=== PATIENT | female | born 1965 | race Caucasian/White ===

== ENCOUNTER 2023-06-23 02:36 | Day surgery (SDC) | payer OTHER, SELFPAY ==
[2023-06-08 13:57] VITALS: BMI 43.3
--- NOTE | 2023-06-19 11:24 | SUR.PREOP ---
Patient called regarding upcoming procedure. Reviewed preop instructions, appointment times, and procedure prep.
[2023-06-23 10:36] VITALS: BP 147/84; PULSE 61; RESP 20; TEMP 35.6; O2SAT 98; BMI 42.5
--- NOTE | 2023-06-23 10:44 | P.HP_ITS ---
History of Present Illness History of Present Illness Consent: Risks, benefits, and alternatives have been discussed and questions answered. Patient agrees to proceed with procedure. Chief complaint: Personal hx of colon polyps Narrative: Antonette Alonso is a 58 year old female Presents for screening colonoscopy. She speaks only Persian. She is accompanied by her daughter who assists with translation. Patient is reported to have had colon polyps by Dr. Marion elsewhere in 2017. Patient presents today for follow-up colonoscopy. She reports that her weight appetite and bowel movements are normal. She denies abdominal pain. In general has been in good health. Family history noncontributory. Review of Systems Review of Systems: Review of systems noncontributory. [facility] Social History Social History Smoking status: Never smoker Substance use type: does not use Living arrangements: other Additional living arrangements comments: with sp Meds Home Medications and Allergies Home Medications Medication Instructions Recorded Confirmed Type No Home Medications 06/23/23 06/23/23 History Allergies Allergy/AdvReac Type Severity Reaction Status Date / Time No Known Allergies Allergy Verified 06/23/23 10:35 Vital Signs Vital Signs - 24 hr 06/23/23 10:36 Temperature 96.1 F L Pulse Rate 61 Respiratory Rate 20 Blood Pressure 147/84 H Pulse Oximetry 98 Oxygen Delivery Room Air Exam Narrative: Physical exam reveals patient to be alert. Vital signs stable. HEENT exam is unremarkable. Patient is anicteric. Lungs are clear to auscultation and percussion. Heart is without murmur or extra sounds. Abdomen bowel sounds are present soft nontender with no organomegaly. Digital external rectal exam normal. Assessment and Plan Assessment and plan (1) History of colon polyps: Code(s): Z86.010 - Personal history of colonic polyps Status: Acute Assessment and Plan: Patient presents today for screening colonoscopy. She has a history of colon polyp. Further recommendations may be given after endoscopy.
[2023-06-23] MEDS: LACTATED RINGERS 1,000 ML 150 ML IV CONT (10:51)
[2023-06-23] MEDS: AMPICILLIN 2 GM/NS 100 ML 2 GM/100 ML BAG IVPB (11:00)
--- NOTE | 2023-06-23 11:18 | P.PNAN_ITS ---
Anes - Initial Pre Proc Eval Procedure: Operation Date: 06/23/23 11:00 Proposed Procedures p Colonoscopy - Parveen Mo MD Date/Time: 06/23/23 11:18 Surgeon: Parveen Mo MD Pre Op Diagnosis: Personal hx of colon polyps Patient Data Age: 58 Gender: F Height: 1.57 m Weight: 105.4 kg Last Vital Signs Temp 96.1 F L 06/23/23 10:36 Pulse 61 06/23/23 10:36 Resp 20 06/23/23 10:36 BP 147/84 H 06/23/23 10:36 Pulse Ox 98 06/23/23 10:36 O2 Del Method Room Air 06/23/23 10:36 Allergies Allergy/AdvReac Type Severity Reaction Status Date / Time No Known Allergies Allergy Verified 06/23/23 10:35 Home Medications Medication Instructions Recorded Confirmed Type calcium carbonate 600 mg-vitamin 1 tablet PO BID 06/23/23 06/23/23 History D3 10 mcg (400 unit) tablet diclofenac sodium 75 mg 75 mg PO BID PRN Pain 06/23/23 06/23/23 History tablet,delayed release glucosamine sulf dipot 1 cap PO DAILY 06/23/23 06/23/23 History chlr,msm,chond 550 mg-C 30 mg-willis 1 mg capsule (Glucosamine Chondroitin) pregabalin 75 mg capsule 75 mg PO BID PRN Pain 06/23/23 06/23/23 History tramadol 50 mg tablet 50 mg PO Q6H PRN Pain 06/23/23 06/23/23 History Patient hx anesthesia problems: none Family hx anesthesia problems: none Results Review: All pre-operative results and documents have been reviewed as part of the pre- operative evaluation. [facility] Social History Social History Smoking status: Never smoker Substance use type: does not use Living arrangements: other Additional living arrangements comments: with sp Anes - Eval Final PreProcedure Day of Procedure 06/23/23 11:18 Patient weight: morbidly obese Heart: regular rate and rhythm Lungs: clear to auscultation Airway: Mallampati scale class II Neurological: alert and oriented Last oral intake: >/= 8 hours Emergent: no Anesthetic plan: proceed Results Review: All pre-operative results and documents have been reviewed as part of the pre- operative evaluation. Informed Consent: The patient's anesthetic plan and its attendant risks and benefits were discussed with the patient/family/POA. Questions were solicited and answers provided to the satisfaction of the patient/family/POA.
[2023-06-23 12:10] VITALS: BP 102/65; PULSE 64; RESP 20; O2SAT 97
[2023-06-23 12:20] VITALS: BP 114/71; PULSE 52; RESP 14; O2SAT 97
[2023-06-23 12:30] VITALS: BP 116/75; PULSE 52; RESP 14; O2SAT 100
== END 2023-06-23 12:50 | disposition home or self-care (01) ==
PROVIDERS: PCP Physician Assistant; Visit Provider Internal Medicine Gastroenterology
PROC: 0DJD8ZZ Inspection of Lower Intestinal Tract, Via Natural or Artificial Opening Endoscopic (ICD-10-PCS; CPT 45378; principal; 2023-06-23 11:00)
DX: Z12.11 Encounter for screening for malignant neoplasm of colon (principal); D12.3 Benign neoplasm of transverse colon; K62.1 Rectal polyp; K64.8 Other hemorrhoids; E66.01 Morbid (severe) obesity due to excess calories; Z68.41 Body mass index [BMI] 40.0-44.9, adult; Z86.010 Personal history of colon polyps
CPT/HCPCS: 45385; 88305; J0290; J2704; J7120

== ENCOUNTER 2024-03-16 10:48 | Outpatient (CLI) | payer OTHER, SELFPAY ==
[2024-03-16 11:38] LABS: Iron 95 ug/dL (37-170)
[2024-03-16 11:46] LABS: Basophils Percent Auto 0.7 % (0.2-1.2); Eosinophils Absolute Auto 0.1 K/mm3 (0-0.3); Hematocrit 38.2 % (37.0-47.0); Hemoglobin 12.3 g/dL (12.0-15.0); Immature Granulocyte Absolute 0.01 K/mm3 (0.00-0.031); Immature Granulocyte Percent A 0.2 % (0-0.5); Lymphocytes Absolute Auto 1.37 K/mm3 (0.9-3.2); Lymphocytes Percent Auto 30.6 % (18.3-44.2); Mean Corpuscular HGB Conc 32.2 g/dl (32-36); Mean Corpuscular Hemoglobin 27.2 pg (26-34); Mean Corpuscular Volume 84.5 fl (80-100); Mean Platelet Volume 11.8 fl (7.4-10.4); Monocytes Absolute Auto 0.4 K/mm3 (0.1-0.6); Neutrophils Absolute Auto 2.6 K/mm3 (1.3-6.7); Neutrophils Percent Auto 58.5 % (45.5-73.1); Platelet Count Result 214 k/mm3 (150-375); Red Blood Count 4.52 M/mm3 (4.2-5.4); Red Cell Distribution Width 14.6 % (11.5-14.5); White Blood Count 4.5 K/mm3 (4.5-10.0)
[2024-03-16 11:56] LABS: Percent Iron Saturation 28 % (20-50)
== END 2024-03-16 10:49 | disposition home or self-care (01) ==
PROVIDERS: PCP Physician Assistant; Visit Provider Nurse Practitioner Family
DX: R10.13 Epigastric pain (principal); R11.0 Nausea
CPT/HCPCS: 36415; 82728; 83540; 83550; 85025

== ENCOUNTER 2024-03-18 11:54 | Outpatient (CLI) | payer OTHER, SELFPAY ==
[2024-03-22 13:42] LABS: H pylori Ag Stool RESULT: Not Detected
== END 2024-03-18 11:55 | disposition home or self-care (01) ==
LOC: ANHLAB 11:56
PROVIDERS: PCP Emergency Medicine; Visit Provider Nurse Practitioner Family
DX: R10.13 Epigastric pain (principal); R11.0 Nausea
CPT/HCPCS: 87338

== ENCOUNTER 2025-02-15 09:16 | Outpatient (CLI) | payer OTHER, SELFPAY ==
--- NOTE | ~2025-02-15 | MM_ITS ---
EXAMINATION: MM screening howard BI w marcello HISTORY: Screening TECHNIQUE: Craniocaudal and mediolateral oblique 3-D tomosynthesis images were obtained and synthetic 2-D images were generated. CAD analysis was submitted and interpreted. COMPARISON: No prior mammogram is available for comparison at this institution. BREAST PARENCHYMAL COMPOSITION: Not Dense: The breasts are almost entirely fatty. FINDINGS: There is no evidence of suspicious mass, calcification, or architectural distortion to sugg est malignancy in either breast. There has been no suspicious interval change. IMPRESSION: 1. No mammographic evidence of malignancy. 2. Recommend routine screening mammography in one year. BI-RADS Category 1: Negative Reviewed, dictated and finalized at location B.
--- OUTSIDE RECORDS SUMMARY | 2025-02-15 09:36 | XMS_ITS | Referral Summary ---
Author Organization [facility] [place] Address [facility] [place] [address] Care Team Providers Care Abstract Clerk Name Role Phone Piper Sloan MD Primary Care Provider [phone] Allergies No known active allergies Medications calcium carbonate-vitamin D3 (CALTRATE 600 + D) 1500 mg (600 mg elemental) -400 units per tablet Take 1 tablet by mouth 2 (two) times a day 2 Active pregabalin (LYRICA) 75 mg capsule Take 1 capsule (75 mg total) by mouth 2 (two) times a day as needed Active ascorbic acid (ascorbic acid with may hips) 500 mg tablet,chewable Take 1 tablet/chew tab (500 mg total) by mouth daily Active acetaminophen (TYLENOL) 500 mg tablet Take 1 tablet (500 mg total) by mouth every 6 (six) hours as needed for pain Active apixaban (ELIQUIS) 2.5 mg tabletIndications:P rimary osteoarthritis of right knee Take 1 tablet (2.5 mg total) by mouth 2 (two) times a day for 14 days 28 tablet 3 Active ondansetron (ZOFRAN) 4 mg tabletIndications:P rimary osteoarthritis of right knee Take 1 tablet (4 mg total) by mouth every 8 (eight) hours as needed for nausea or vomiting 20 tablet 3 Active cyclobenzaprine (FLEXERIL) 10 mg tabletIndications:S 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 15 tablet 4 Active traMADoL (ULTRAM) 50 mg tabletIndications:P rimary osteoarthritis of right knee,Status post total knee replacement using cement, right Take 1 tablet (50 mg total) by mouth every 6 (six) hours as needed for pain 15 tablet [address] (PROTONIX) 40 mg EC tablet Take 1 tablet (40 mg total) by mouth 2 (two) times a day 60 tablet 2 5 Active nortriptyline (PAMELOR) 10 mg capsule Take 1 capsule (10 mg total) by mouth nightly 30 capsule 2 5 Active Active Problems Problem Noted Date Diagnosed Date Epigastric pain 10/21/2024 Orthopedic aftercare 08/04/2023 Arthritis of right knee 07/10/2023 Left knee pain 02/27/2023 Aftercare following left knee joint replacement surgery 02/27/2023 History of total knee arthroplasty 02/27/2023 Primary osteoarthritis of left knee 02/06/2023 Carpal tunnel syndrome 11/26/2022 3 Obesity 11/26/2022 11/26/2022 Uterine leiomyoma 10/08/2022 11/26/2022 Perimenopausal disorder 04/18/2022 11/27/19 Uterine prolapse 04/18/2022 11/26/2022 Impaired glucose tolerance 04/07/202211/26 Low vitamin D level 04/07/2022 11/26/2022 Osteoarthritis of knee 03/14/2021 Chronic back pain 12/11/2020 11/26/2022 Lumbosacral radiculopathy 11/12/20202022 Degeneration of lumbar intervertebral disc 06/2011/26/2022 Anemia 03/24/2017 11/26/2022 Dyslipidemia 03/24/2017 11/26/2022 Immunizations Immunization Administration Dates Next Due Influenza, Quadrivalent, Spl it, Intramuscular 06/20/2019,03/20/2017,08/12/2016 Influenza, Quadrivalent, Spl it, Preservative Free, Intramuscular 07/11/2023,08/06/2018 Influenza, Trivalent, IM (MDV) 08/07/2015 Pneumococcal Polysaccharide PPV23 03/20/2017 Tdap 04/20/2023,09/17/2011 Social History Tobacco Use Types Packs/Day Years Used Date Smoking Tobacco: Never Passive Smoke Exposure: Never Smokeless Tobacco: Never Tobacco Cessation:Counseling Given: Not Answered OASIS D0700: Social Isolation Answer Da te Recorded Frequency of experiencing loneliness or isolatio n Never 07/16/2023 A[employer]omaticities Answer Date Recorded In the past 12 months has [employer], gas, oil, or water [employer] threatened to shut off services in your home? No 07/10/2023 Social Connection and Isolat ion Panel [NHANES] Answer Date Recorded In a typical week, how many times do you talk on the phone with family, friends, or neighbors? More than three times a week 07/10/2023 How often do you get togethe r with friends or relatives? More than three times a week 07/10/2023 How often do you attend chur or adventism services? More than 4 times per year 07/10/2023 Do you belong to any clubs o r organizations such as quaker groups, unions, fraternal or athletic groups, or school groups? No 07/10/2023 How often do you attend meet ings of the clubs or organizations you belong to? Never 07/10/2023 Are you , , di vorced, , never , or living with a partner? 07/10/2023 AUDIT-C Answer Date Recorded Q1: How often do you have a drink containing alc ohol? Never 11/07/2024 Average Number of Drinks Not on file 025 Frequency of Binge Drinking Not on file 10/19 Overall Financial Resource Strain (CARDIA) Answe r Date Recorded How hard is it for you to pa y for the very basics like food, housing, medical care, and heating? Not hard at all 07/10/2023 Hunger Vital Sign Answer Date Recorded Within the past 12 months, y ou worried that your food would run out before you got the money to buy more. Never true 07/10/20 23 Within the past 12 months, t he food you bought just didn't last and you didn't have money to get more. Never true 07/10/2023 PRAPARE - Transportation Answer Date Re corded In the past 12 months, has l ack of transportation kept you from medical appointments or from getting medications? No 06/20 In the past 12 months, has l ack of transportation kept you from meetings, work, or from getting things needed for daily living? No 07/10/2023 Housing Stability Vital Sign Answer Kishore e Recorded In the last 12 months, was t here a time when you were not able to pay the mortgage or rent on time? No 07/10/2023 In the last 12 months, how many places have you lived? 1 07/10/2023 In the last 12 months, was t here a time when you did not have a steady place to sleep or slept in a detention (including now)? No 07/10/2023 Personal Safety Answer Date Recorded Have you ever been in or are you currently in a harmful physical or emotional relationship or is someone making you feel afraid or unsafe? Denies 11/07/2024 Comments No Sex and Gender Information Value Date Recorded Sex Assigned at Not on file Legal Sex Female 7:25 PM SNAP SHEARER Gender Identity Not on file Sexual Orientation Not on file Last Filed Vital Signs Vital Sign Reading Time Taken Comments Blood Pressure 121/72 11/07/2024 12:40 PM CDT Pulse 49 11/07/2024 12:40 PM CDT Temperature 36.7 C (98.1 F) 11/07/2024 12:40 PM CDT Respiratory Rate 18 11/07/2024 12:40 PM CDT Oxygen Saturation 99% 11/07/2024 12:40 PM CDT Inhaled Oxygen Concentration - - Weight 106.1 kg (234 lb) 11/07/2024 10:38 AM CDT Height 157.5 cm (5' 2) 11/07/2024 10:38 AM CDT Body Mass Index 42.8 11/07/2024 10:38 AM CDT Plan of Treatment Not on file Medical Devices Implanted Type Area Die Attacher Device Identifier Shelf Expiration Date Model / Serial / Lot [employer] Simplex P Radiopaque Full Dose Cement Bone Sterile 6191-1-010 - [id number] Implanted:Qty: 1 on 02/06/2023 by Miguel Torres MD at [facility] Bone Cement Left: Knee [employer] 05/19/2025 6191-1-010 / / [id number] [employer] Simplex P Radiopaque Full Dose Cement Bone Sterile 6191-1-010 - [id number] Implanted:Qty: 1 on 02/06/2023 by Miguel Torres MD at [facility] Bone Cement Left: Knee [employer] 05/19/2025 6191-1-010 / / [id number] [employer] Persona Cemented Posterior Stabilize Knee Left 8 Standard [id number] - [id number] Implanted:Qty: 1 on 02/06/2023 by Miguel Torres MD at [facility] Left: Knee [employer] [id number] 10/26/2032 [id number] / / [id number] [employer] [id number] Persona Natural Tibia Stem Knee Left 5d E Baseplate Tibial - [id number] Implanted:Qty: 1 on 02/06/2023 by Miguel Torres MD at [facility] Left: Knee [employer] [id number] 11/11/2032 [id number] / / [id number] [employer] Persona 32mm Knee Component Patellar All Poly Latex Free [id number] - [id number] Implanted:Qty: 1 on 02/06/2023 by Miguel Torres MD at [facility] Left: Knee [employer] 12/03/2027 [id number] / / [id number] [employer] Persona 10mm Posterior Stabilize Knee Left 6-9 E-F Insert [id number] - [id number] Implanted:Qty: 1 on 02/06/2023 by Miguel Torres MD at [facility] Left: Knee [employer] 12/03/2027 [id number] / / [id number] [employer] Persona 32mm Knee Component Patellar All Poly Latex Free [id number] - [id number] Implanted:Qty: 1 on 07/10/2023 by Miguel Torres MD at [facility] Right: Knee [employer] 05/18/2028 [id number] / / [id number] [employer] Persona Cemented Posterior Stabilize Knee Right 8 Standard [id number] - [id number] Implanted:Qty: 1 on 07/10/2023 by Miguel Torres MD at [facility] Right: Knee [employer] [id number] 06/15/2032 [id number] / / [id number] [employer] Insert Tibial Knee Fixed Rt Posterior Stabilized Persona 12mm Size 6 9 E F Polyethylene [id number] - [id number] Implanted:Qty: 1 on 07/10/2023 by Miguel Torres MD at [facility] Right: Knee [employer] [id number] 08/17/2028 [id number] / / [id number] [employer] Simplex P Radiopaque Full Dose Cement Bone Sterile 6191-1-010 - [id number] Implanted:Qty: 1 on 07/10/2023 by Miguel Torres MD at [facility] Right: Knee [employer] 08/19/2025 6191-1-010 / / [id number] [employer] Simplex P Radiopaque Full Dose Cement Bone Sterile 6191-1-010 - [id number] Implanted:Qty: 1 on 07/10/2023 by Miguel Torres MD at [facility] Right: Knee [employer] 08/19/2025 6191-1-010 / / [id number] [employer] Baseplate Tibial Knee Cemented Right Fixed Stemmed Persona Size E Tivanium [id number] - [id number] Implanted:Qty: 1 on 07/10/2023 by Miguel Torres MD at [facility] Right: Knee [employer] [id number] 02/21/2033 [id number] / / [id number] Procedures Procedure Name Priority Date/Time Associated Diagnosis Comments SCREENING MAMMOGRAM BILATERAL W DANIEL Routine 09/15/2017 11:41 AM SNAP SHEARER from Last 3 Months or Most Recently Relevant to Health Maintenance Results * Screening Mammogram Bilateral W Daniel (09/15/2017 11:41 AM SNAP SHEARER) Anatomical Region Laterality Modality Breast Bilateral Mammography 09/15/2017 11:4 1 AM SNAP SHEARER Impressions 09/15/2017 12:37 PM SNAP SHEARER BI-RAD 1 NEGATIVE There is no mammographic evidence of malignancy. A 1 year screening mammogram is recommended. The patient has been or will be contacted. The patient will be entered into a reminder system with a target due date of 1 year for her next screening exam. Electronically signed by: Felix Ferrari M.D., md/bladimir:09/15/2017 12:36:45 Utility Tech: Thuy Guerrero [facility] letter sent: Normal Exam Reading location: BI-RADS: 1 Negative [EOD] Narrative 09/15/2017 12:37 PM SNAP SHEARER - MG BILATERAL DIGITAL SCREENING MAMMOGRAM 3D/2D WITH MEDIOLATERAL OBLIQUE CRANIOCAUDAL: 09/15/2017 The study was acquired using full field digital technology and interpreted from soft copy. 2D digital mammographic views, as well as 3D digital tomosynthesis were performed in the CC and MLO projections. CLINICAL: Routine mammogram. Denies any problems today. No personal history of breast cancer. No family history of breast cancer. COMPARISONS: Comparison is made to exams dated: 08/20/2016 mammogram, 08/14/2015 mammogram, and 04/27/2014 mammogram - [facility] BREAST TISSUE: There are scattered areas of fibroglandular density. FINDINGS: No significant masses, calcifications, or other findings are seen in either breast. There has been no significant interval change. Procedure Note Provider, MD Sid - 12/04/2020 - MG BILATERAL DIGITAL SCREENING MAMMOGRAM 3D/2D WITH MEDIOLATERAL OBLIQUE CRANIOCAUDAL: 09/15/2017 The study was acquired using full field digital technology and interpretedfrom soft copy. 2D digital mammographic views, as well as 3D digital tomosynthesis were performed in the CC and MLO projections. CLINICAL: Routine mammogram. Denies any problems today. No personalhistory of breast cancer. No family history of breast cancer. COMPARISONS: Comparison is made to exams dated: 08/20/2016 mammogram,08/14/2015 mammogram, and 04/27/2014 mammogram - [facility]. BREAST TISSUE: There are scattered areas of fibroglandular density. FINDINGS: No significant masses, calcifications, or other findings areseen in either breast. There has been no significant interval change. IMPRESSION: BI-RAD 1 NEGATIVE There is no mammographic evidence of malignancy. A 1 year screeningmammogram is recommended. The patient has been or will be contacted. The patient will be entered into a reminder system with a target due dateof 1 year for her next screening exam. Electronically signed by: Felix Ferrari M.D., md/bladimir:09/15/2017 12:36:45 Utility Tech: Thuy Guerrero, [facility] letter sent: Normal Exam Reading location: BI-RADS: 1 Negative [EOD] Lillian Pedro NP IMG MAMMO PROCEDURES Final Res ult from Last 3 Months or Most Recently Relevant to Health Maintenance Insurance [facility] [employer] Advance Directives For more information, please contact: [phone] * Full Code (Latest Code Status on File) Date Activated Date Inactivated Comments 11/07/2024 10:31 AM 11/07/2024 4:49 PM * Full Code Date Activated Date Inactivated Comments 11/07/2024 10:31 AM 11/07/2024 10:31 AM * Full Code Date Activated Date Inactivated Comments 07/10/2023 10:20 AM 07/11/2023 7:21 PM * Full Code Date Activated Date Inactivated Comments 02/06/2023 11:21 AM 02/07/2023 6:19 PM Care Teams Abstract Clerk Relationship Specialty Start Date End Date Piper Sloan MD [address] [place] [address] PCP - General Emergency Medicine 05/31/24
--- OUTSIDE RECORDS SUMMARY | 2025-02-15 09:36 | XMS_ITS | Clinical Summary ---
Author Organization [facility] [place] Address [facility] [place] [address] Care Team Providers Care Title Insurance Agent Name Role Phone Piper Sloan MD Primary Care Provider [phone] Allergies No known active allergies Medications calcium [...] 08/07/2015 Pneumococcal Polysaccharide PPV23 03/20/2017 Tdap 04/20/2023,09/17/2011 Surgical History Surgery Date Site/Laterality Comments TUBAL LIGATION SECTION x4; Tubal ligation CARPAL TUNNEL RELEASE x2 CHOLECYSTECTOMY 07/20/2021 - 07/19/2022 TOTAL KNEE ARTHROPLASTY 07/20/2022 - 07/19/2023 Left Medical History Medical History Date Comments DDD (degenerative disc disease), lumbar Osteoarthritis GERD (gastroesophageal reflux disease) occassional heart burn after eating spicy things Obesity Pre-diabetes patient states n o longer. No longer takes medication. Dental bridge present Lower Family History Medical History Relation Name Comments Heart disease Father Hypertension Father Arthritis Mother Relation Name Status Comments Father Mother Social History Tobacco Use Types Packs/Day Years Used Date Smoking Tobacco: Never Passive Smoke Exposure: Never Smokeless Tobacco: Never Tobacco Cessation:Counseling Given: Not Answered OASIS D0700: Social Isolation Answer Da te Recorded Frequency of experiencing loneliness or isolatio n Never 07/16/[address] [facility] Utilities Answer Date Recorded In the past 12 months has e [email or web address], gas, oil, or water [employer] threatened to shut off services in your [...] week 07/10/2023 How often do you attend formerly [facility] or sabianism services? More than 4 times per year 07/10/2023 Do you belong to any clubs o r organizations such as taoist groups, unions, fraternal or athletic groups, or [...] place to sleep or slept in a fdc (including now)? No 07/10/2023 Personal Safety Answer Date Recorded Have you ever been in or are you currently in a harmful physical or emotional relationship or is someone making you feel afraid or unsafe? Denies 11/07/2024 Comments No Sex and Gender Information Value Date Recorded Sex Assigned at Not on file Legal Sex Female 7:25 PM GEOSPATIAL APPLICATIONS DEVELOPER Gender Identity Not on file Sexual Orientation Not on file Obstetrics History Last Filed Vital Signs Vital Sign Reading [...] 11/07/2024 10:38 AM CDT Plan of Treatment Health Maintenance Due Date Last Done Comments Cervical Cancer Screening 1966 Colon Cancer Screening-Colonoscopy 1966 Depression Screening 1966 Hepatitis C Screening 1966 Hepatitis B Screening 02/02/1984 Regular Well Visit/Exam 18-64 02/02/1984 Zoster Vaccine (1 of 2) 02/02/2016 Covid-19 Vaccine ( season) 2024 11/01/2020, 10/04/2020 Breast Cancer Screening-Mammogram 09/24/2024 09/25/2023, 10/12/2018, 09/15/2017, Additional history exists Influenza Vaccine (#1) 2025 , 06/20/2019, 08/06/2018, Additional history exists DTaP/Tdap/Td Vaccine (3 - Td or Tdap) 04/20/2033 04/20/2023, 09/17/2011 Pneumococcal vaccine <65 Aged Out 03/20/2017 No longer eligible based on patient's age to complete this topic Medical Devices Implanted Type Area Heel Wheeler Device Identifier Shelf Expiration Date Model / Serial / Lot [employer] Simplex P Radiopaque Full Dose Cement Bone Sterile 6191-1-010 - [id number] Implanted:Qty: 1 on 02/06/2023 by Miguel Torres MD at [facility] Bone Cement Left: Knee [employer] 05/19/2025 6191-1-010 / / [id number] [employer] Simplex P Radiopaque Full Dose Cement Bone Sterile 6191-1-010 - [id number] Implanted:Qty: 1 on 02/06/2023 by Miguel Torres MD at [facility] Bone Cement Left: Knee [employer] 05/19/2025 6191-1-010 / / [id number] [employer] Persona Cemented Posterior Stabilize Knee Left 8 Standard [id number] - [id number] Implanted:Qty: 1 on 02/06/2023 by Miguel Torres MD at [facility] Left: Knee [employer] [id number] 10/26/2032 [id number] / / [id number] [employer] 28-8250-173-01 Persona Natural Tibia Stem Knee Left 5d E Baseplate Tibial - [id number] Implanted:Qty: 1 on 02/06/2023 by Miguel Torres MD at [facility] Left: Knee [employer] [id number] 11/11/2032 [id number] / / [id number] [employer] Persona 32mm Knee Component Patellar All Poly Latex Free [id number] - [id number] Implanted:Qty: 1 on 02/06/2023 by Miguel Torres MD at [facility] Left: Knee [employer] 12/03/2027 [id number] / / [id number] [employer] Persona 10mm Posterior Stabilize Knee Left 6-9 E-F Insert [id number] - [id number] Implanted:Qty: 1 on 02/06/2023 by Miguel Torres MD at [facility] Left: Knee [employer] 12/03/2027 [id number] / / [id number] [employer] Persona 32mm Knee Component Patellar All Poly Latex Free 61-3191-531-32 - [id number] Implanted:Qty: 1 on 07/10/2023 by Miguel Torres MD at [facility] Right: Knee [employer] 05/18/2028 [id number] / / [id number] [employer] Persona Cemented Posterior Stabilize Knee Right 8 Standard [id number] - [id number] Implanted:Qty: 1 on 07/10/2023 by Miguel Torres MD at [facility] Right: Knee [employer] [id number] 06/15/2032 [id number] / / [id number] [employer] Insert Tibial Knee Fixed Rt Posterior Stabilized Persona 12mm Size 6 9 E F Polyethylene [id number] - [id number] Implanted:Qty: 1 on 07/10/2023 by Miguel Torres MD at [facility] Right: Knee [employer] [id number] 08/17/2028 [id number] / / [id number] [employer] Simplex P Radiopaque Full Dose Cement Bone Sterile 6191-1-010 - [id number] Implanted:Qty: 1 on 07/10/2023 by Miguel Torres MD at [facility] Right: Knee [employer] 08/19/2025 6191-1-010 / / [id number] [employer] Simplex P Radiopaque Full Dose Cement Bone Sterile 6191-1-010 - [id number] Implanted:Qty: 1 on 07/10/2023 by Miguel Torres MD at [facility] Right: Knee [employer] 08/19/2025 6191-1-010 / / [id number] [employer] Baseplate Tibial Knee Cemented Right Fixed Stemmed Persona Size E Tivanium [id number] - [id number] Implanted:Qty: 1 on 07/10/2023 by Miguel Torres MD at [facility] Right: Knee [employer] [id number] 02/21/2033 [id number] / / [id number] Procedures Procedure Name Priority Date/Time Associated Diagnosis Comments SCREENING MAMMOGRAM BILATERAL W DANIEL Routine 09/15/2017 11:41 AM GEOSPATIAL APPLICATIONS DEVELOPER from Last 3 Months or Most Recently Relevant to Health Maintenance Results * Screening Mammogram Bilateral W Daniel (09/15/2017 11:41 AM GEOSPATIAL APPLICATIONS DEVELOPER) Anatomical Region Laterality Modality Breast Bilateral Mammography 09/15/2017 11:4 1 AM GEOSPATIAL APPLICATIONS DEVELOPER Impressions 09/15/2017 12:37 PM GEOSPATIAL APPLICATIONS DEVELOPER BI-RAD 1 NEGATIVE There is no mammographic evidence of malignancy. A 1 year screening mammogram is recommended. The patient has been or will be contacted. The patient will be entered into a reminder system with a target due date of 1 year for her next screening exam. Electronically signed by: Felix Ferrari M.D., md/bladimir:09/15/2017 12:36:45 Grinding Wheel Inspector: Thuy Guerrero [facility] letter sent: Normal Exam Reading location: BI-RADS: 1 Negative [EOD] Narrative 09/15/2017 12:37 PM GEOSPATIAL APPLICATIONS DEVELOPER - MG BILATERAL DIGITAL SCREENING MAMMOGRAM 3D/2D [...] mammogram, 08/14/2015 mammogram, and 04/27/2014 mammogram - [facility]. BREAST TISSUE: There are scattered areas of [...] 08/20/2016 mammogram,08/14/2015 mammogram, and 04/27/2014 mammogram - [facility] BREAST TISSUE: There are scattered areas [...] signed by: Felix Ferrari M.D., md/bladimir:09/15/2017 12:36:45 Grinding Wheel Inspector: Thuy Guerrero [facility] letter sent: Normal Exam Reading location: BI-RADS: 1 Negative [EOD] Lillian Pedro NP IMG MAMMO PROCEDURES Final Res ult from Last 3 Months or Most Recently Relevant to Health Maintenance Insurance [employer] Directives For more information, please contact: [phone] * Full Code (Latest Code Status on File) Date Activated Date Inactivated Comments 11/07/2024 10:31 AM 11/07/2024 4:49 PM * Full Code Date Activated Date Inactivated Comments 11/07/2024 10:31 AM 11/07/2024 10:31 AM * Full Code Date Activated Date Inactivated Comments 07/10/2023 10:20 AM 07/11/2023 7:21 PM * Full Code Date Activated Date Inactivated Comments 02/06/2023 11:21 AM 02/07/2023 6:19 PM Care Teams Title Insurance Agent Relationship Specialty Start Date End Date Piper Sloan MD [address] [place] [id number] PCP - General Emergency Medicine 05/31/24
--- OUTSIDE RECORDS SUMMARY | 2025-02-15 09:36 | XMS_ITS | Clinical Summary ---
Author Organization [facility] Address [address] [place] [address] Care Team Providers Care Tunnel Elastic Operator Lockstitch Name Role Phone Lillian Pedro RABBIT DRESSER-MAJOR LEAGUE BASEBALL PLAYER Primary Care Pro vider Source Comments [facility],non-owned Affiliates and Associated Physician Practices is amultiple site organization consisting of ambulatory clinics and hospital sitesin [place], [place], [place] and [place]. This disclosure is being madepursuant to the Care Everywhere program and may not contain all information available regarding this patient. Last updated 18.[facility] [employer] Allergies No known active allergies Medications * Be aware that medications may not be up to date on this document. Alwaysverify current medications with the patient. atorvastatin (LIPITOR) 10 MG tablet Take 10 mg by mouth once daily 01/29/2020 Active gabapentin (NEURONTIN) 100 MG capsule Take 100 mg by mouth 3 times daily 11/07/2020 Active Active Problems No known active problems Social History Tobacco Use Types Packs/Day Years Used Date Smoking Tobacco: Never Smokeless Tobacco: Never Comments Unknown Sex and Gender Information Value Date Recorded Sex Assigned at Not on file Legal Sex Female 10:13 AM CDT Gender Identity Not on file Sexual Orientation Not on file Last Filed Vital Signs Vital Sign Reading Time Taken Comments Blood Pressure - - Pulse - - Temperature - - Respiratory Rate - - Oxygen Saturation - - Inhaled Oxygen Concentration - - Weight 111.1 kg (245 lb) 01/17/2021 10:59 AM CDT Height 157.5 cm (5' 2) 01/17/2021 10:59 AM CDT Body Mass Index 44.81 01/17/2021 10:59 AM CDT Plan of Treatment Health Maintenance Due Date Last Done Comments COLOGUARD (AGES 45-75) - COL ON CA SCREENING 1966 COLON MONITORING 1966 COLONOSCOPY - COLON CA SCREENING 1966 CT COLONOGRAPHY - COLON CA SCREENING 1966 Colorectal Cancer Screening 1966 FIT - COLON CA SCREENING 1966 FLEX SIG - COLON CA SCREENING 1966 MAMMOGRAM 1966 HIV SCREENING 1981 HEPATITIS C SCREENING 01/28/1984 DTAP/TDAP/TD VACCINES (1 - Tdap) 1985 HEPATITIS B VACCINE (1 of 3 - 19+ 3-dose series) 1985 PAP SMEAR 1987 PNEUMOCOCCAL VACCINE 50+ (1 of 1 - PCV) 02/02/2016 ZOSTER VACCINE (1 of 2) 02/02/2016 SCREENING FOR DIABETES 01/17/2021 COVID-19 VACCINE (1 - 2023-2 5 season) 2024 DEPRESSION SCREENING 07/20/2024 INFLUENZA VACCINE (#1) 2025 HIB VACCINE Aged Out No longer eligi ble based on patient's age to complete this topic HPV VACCINE Aged Out No longer eligi ble based on patient's age to complete this topic MENINGOCOCCAL (Group B) VACC INE SHARED DECISION-MAKING Aged Out No longer eligibl e based on patient's age to complete this topic MENINGOCOCCAL GROUPS A/C/Y/W VACCINE Aged Out No longer eligible b ased on patient's age to complete this topic [facility] Member Subscriber Plan / Payer (Ef fective for All Dates) Name:Keya Alonso Member ID:Not on file Relation to Subscriber:Not on file Name:KEYA ALONSO Subscriber ID:Not on file Address: [address] Payer ID:Not on file Group ID:Not on file Type:Self Pay Address: [place], [place] Care Teams Tunnel Elastic Operator Lockstitch Relationship Specialty Start Date End Date Lillian Pedro APRN-CNP [address] [address] [facility] - General 11/15/20
== END 2025-02-15 09:17 | disposition home or self-care (01) ==
LOC: ANHIMG 09:19
PROVIDERS: PCP Emergency Medicine; Visit Provider Emergency Medicine
DX: Z12.31 Encounter for screening mammogram for malignant neoplasm of breast (principal)
CPT/HCPCS: 77063; 77067